=== PATIENT | male | born 1985 | race Caucasian/White ===

== ENCOUNTER 2019-04-07 21:21 | Emergency (ER) | payer SELFPAY ==
--- NOTE | 2019-04-08 00:10 | ER Document Report ---
HPI - HPI Time Seen by Provider: 04/07/19 23:31 Pain Level: 4 Notes: Otherwise healthy 34-year-old male presenting to the emergency department with chief complaint of possible ivhn-svbe-pxz-mouth disease. Patient reports 1 of his children came down with udkp-hjyk-ycr-mouth, states that he now has sores on his hands and around his mouth. Denies any fever. Past Medical History - General Information source: Patient - Social History Smoking Status: Current Every Day Smoker Frequency of alcohol use: Occasional Family History: Reviewed & Not Pertinent Patient has suicidal ideation: No Patient has homicidal ideation: No - Medical History Medical History: Negative Surgical Hx: Negative - Immunizations Immunizations up to date: Yes Vertical Provider Document - CONSTITUTIONAL Notes: PHYSICAL EXAMINATION: GENERAL: Well-appearing, well-nourished and in no acute distress. HEAD: Atraumatic, normocephalic. EYES: Pupils equal round extraocular movements intact, conjunctiva are normal. ENT: Nares patent NECK: Normal range of motion LUNGS: No respiratory distress Musculoskeletal: Normal range of motion NEUROLOGICAL: Normal speech, normal gait. PSYCH: Normal mood, normal affect. SKIN: Small papules noted around mouth and on soles of feet and palms of hand. Course - Re-evaluation Re-evalutation: Physical exam consistent with silj-flke-laf-mouth. Patient encouraged to take ibuprofen. Magic mouthwash prescribed. Patient stable for DC home. - Vital Signs Vital signs: Temp Pulse Resp BP Pulse Ox 98.6 F 80 20 147/72 H 95 04/07/19 21:39 04/07/19 21:39 04/07/19 21:39 04/07/19 21:39 04/07/19 21:39 Discharge - Discharge Clinical Impression: Hand, foot and mouth disease Condition: Stable Disposition: HOME, SELF-CARE Additional Instructions: Hand, Foot and Mouth Disease Hand, Foot, and Mouth Disease (HFM) is caused by a virus. Symptoms include small ulcers in the mouth and spots or blisters on the palms, feet, or buttocks. A low grade fever for 2-3 days is common. The skin and mouth sores may last for 7-10 days. Hand, Foot, and Mouth Disease is contagious until one day after the fever is gone. Most of the time, symptoms are mild. If fluids are avoided due to painful mouth sores, dehydration may result. You can use oral anesthetics (Oragel, Anbesol) or liquid Benadryl to numb mouth sores. Use acetaminophen for pain and fever. Use cool liquids and foods that are easily chewed. Avoid citrus juices and spicy foods. To prevent spread of the virus, use good handwashing. Shared toys should be cleaned with disinfectant. Clean the toilets, sinks, and counter surfaces in b athrooms. Launder clothing in hot water. Return if there is a significant change for the worse, including high fever, severe pain, or dehydration. Signs of dehydration in a child can include progressive weakness, apathy, irritability, or no diaper wetting for over eight hours. Prescriptions: Nystatin/Dexameth/Diphen [Magic Mouthwash (Omh Formula) Susp] 5 ml PO QID #120 ml Forms: Return to Work Referrals: LOCALMD,NO [NO LOCAL MD] - Follow up as needed
[2019-04-08 00:36] VITALS: BP 140/75
== END 2019-04-08 00:36 | disposition home or self-care (01) ==
LOC: ER 21:21
DX: B08.4 Enteroviral vesicular stomatitis with exanthem (principal); K13.79 Other lesions of oral mucosa; F17.200 Nicotine dependence, unspecified, uncomplicated
CPT/HCPCS: 99282